=== PATIENT | female | born 1930 | race Hispanic/Latino ===

== ENCOUNTER 2018-02-07 10:25 | Outpatient (CLI) | payer MEDICARE ==
[2018-02-07 11:07] LABS: Hemoglobin 14.8 gm/dl (10.1-14.3); Mean Corpuscular HGB Conc 33 % (30-34); Mean Corpuscular Hemoglobin 33 pg (28-32); Mean Corpuscular Volume 101 fl (79-97); Platelet Count 216 K/mm3 (140-440); Red Blood Count 4.44 M/mm3 (3.65-5.03); Red Cell Distribution Width 13.9 % (13.2-15.2)
[2018-02-07 11:19] LABS: Alanine Aminotransferase 20 units/L (7-56); BUN/Creatinine Ratio 19; Blood Urea Nitrogen 13 mg/dL (7-17); Calcium 9.2 mg/dL (8.4-10.2); Chol/HDL Ratio 4.22 %; HDL Cholesterol 58 mg/dL (40-59); Hemolysis Index 14; LDL Cholesterol,Direct 145 mg/dL (50-130)
--- NOTE | 2018-02-07 12:23 | Fluoroscopy Report ---
UPPER GI SERIES History: Gastroesophageal reflux. Findings: Core Paster film of the abdomen demonstrates an unremarkable bowel gas pattern. Cholecystectomy changes are noted. 35 fluoroscopic images were captured. Deglutition is normal. No evidence for aspiration. The esophagus is normal caliber and mucosal pattern throughout. No focal lesion or hiatal hernia was witnessed. No episodes of gastroesophageal reflux were witnessed. The gastric cavity, duodenal bulb and duodenal sweep are within normal limits anatomically. No mucosal lesion or mass is appreciated. No obstruction. There did appear to be decreased motility throughout the esophagus and stomach throughout this examination. Impression: Decreased esophageal and gastric motility is suspected. No evidence for mucosal lesion, hiatal hernia or reflux.
== END 2018-02-07 10:26 | disposition home or self-care (01) ==
LOC: FLUORO 10:25
PROVIDERS: ATTEND Internal Medicine
DX: K21.9 Gastro-esophageal reflux disease without esophagitis (principal); I10 Essential (primary) hypertension; F17.200 Nicotine dependence, unspecified, uncomplicated; Z90.49 Acquired absence of other specified parts of digestive tract
CPT/HCPCS: 36415; 74241; 80053; 80061; 84436; 84443; 85027